=== PATIENT | male | born 1965 | race Caucasian/White ===

== ENCOUNTER 2019-02-21 17:52 | Emergency (ER) | payer SELFPAY ==
[2019-02-21 18:21] VITALS: TEMP 98.4; BMI 29.2
--- NOTE | 2019-02-21 19:15 | PDOC ---
History of Present Illness - General Chief Complaint: Weakness Stated Complaint: WEAKNESS Time Seen by Provider: 02/21/19 18:30 History Source: Patient Exam Limitations: Language Barrier - History of Present Illness Initial Comments: 02/23/19 07:32 HPI: 53M PMH NIIDM (noncompliant w/ meds) c/o 2 days generalized weakness and frontal /occipital headache in setting of 2 weeks of increased urinary frequency, dysuria, and nonradiating on/off mid-epigastric and flank pain. Denies acute onset changes in vision/hearing, numbness, tingling, f/c/, cp/sob, n/v. Etoh: 12 pack of beer per week, smokes when drinking. Abd surg - hernia repair. Sexually active w/ 1 partner. No PCP Past History - Past Medical History Allergies/Adverse Reactions: Allergies Allergy/AdvReac Type Severity Reaction Status Date / Time No Known Allergies Allergy Verified 02/21/19 18:19 Home Medications: Ambulatory Orders Lisinopril [Prinivil] 5 mg PO DAILY 02/21/19 Metformin HCl [Glucophage] 1,000 mg PO BID 02/21/19 Omeprazole 20 mg PO DAILY 02/21/19 Simvastatin 40 mg PO DAILY 02/21/19 COPD: No Dementia: Yes (TYPE 2) HTN: Yes Hypercholesterolemia: Yes - Surgical History Abdominal Surgery: Yes (HERNIA REPAIR) - Psycho Social/Smoking Cessation Hx Smoking History: Current some day smoker Have you smoked in the past 12 months: Yes Number of Cigarettes Smoked Daily: 2 Information on smoking cessation initiated: No Hx Alcohol Use: No Drug/Substance Use Hx: No Review of Systems - Review of Systems Able to Perform ROS?: Yes Comments:: 02/23/19 07:32 ROS: CONSTITUTIONAL: Denies F / C HEENT: Endorses headache. Denies acute change in vision/hearing. Endorses chronic occasionally blurry vision (told by PCP to get glasses), . RESP: Endorses chronic productive cough (2 years, unchanged). Denies SOB CARD: Denies chest pain, palpitations GI: Endorses midepigastric and flank pain, and loss of appetite. : Endorses frequency and dysuria NEURO: Endoses generalized weakness. Denies acute onset numbness, tingling. Endorses chronic tingling in the AMs (2 years). Is the patient limited Angolan proficient: Yes *Physical Exam - Vital Signs Last Vital Signs Temp Pulse Resp BP Pulse Ox 98.4 F 84 18 146/99 96 02/21/19 18:19 02/21/19 18:19 02/21/19 18:19 02/21/19 18:19 02/21/19 18:19 - Physical Exam Comments: 02/23/19 07:32 PE: GEN: NAD, slightly diaphoretic HEENT: NC/AT, PERRLA. No facial asymmetry. Moist mucous membranes. Normal voice. Supple neck w/ FROM. CV: S1/S2, RRR, no m/r/g LUNG: CTAB, no wheezes, crackles, rales, rhonchi. GI: +MILD TTP midepigastrium otherwise soft, ndnt, +BS, no guarding, no rebound. Neg CVAT b/l. EXTREMITIES: No LE edema. No obvious deformities of all extremities. SKIN: warm, dry, normal turgor PSYCH: normal mood and affect NEURO: Moving all extremities well ED Treatment Course - LABORATORY CBC & Chemistry Diagram: 02/21/19 19:10 02/21/19 19:10 - ADDITIONAL ORDERS Additional order review: Laboratory Results 02/21/19 18:41 POC Glucometer 110 02/21/19 18:41 POC Glucometer 110 Medical Decision Making - Medical Decision Making 02/21/19 19:09 MDM: 53M w/ generalized weakness, headache, midepigastric pain, and urinary freq/ dysuria. Concern for DKA will look at fingerstick glucose DDx DKA, pancreatitis, PUD, UTI - CBC, CMP, CARDIAC - UA/UC - EKG - Tylenol, Fluids, Reglan - reassess - will set up with resident clinic labs reviewed UA neg pt reassessed, abd pain improved but headache still present Toradol, reassess Signed out to PM team Discharge - Discharge Information Problems reviewed: Yes Clinical Impression/Diagnosis: Abdominal pain Qualifiers: Abdominal location: epigastric Qualified Code(s): R10.13 - Epigastric pain Condition: Stable Disposition: HOME - Follow up/Referral Referrals: [facility] [Provider Group] - Patient Discharge Instructions Patient Printed Discharge Instructions: DI for Abdominal Pain-Adult, DI for Headache Additional Instructions: YOU WERE SEEN AND TREATED IN THE EMERGENCY DEPARTMENT YOU MAY TAKE TYLENOL FOR PAIN DIRECTED PER BOTTLE. FOLLOW UP WITH YOUR PRIMARY CARE DOCTOR IN THE NEXT 3-4 DAYS REGARDING YOUR CONCERNS AND THIS ED VISIT. WE HAVE REFERRED YOU TO THE [facility]. THE PHONE NUMBER IS PROVIDED. CALL AND SCHEDULE AN APPOINTMENT. IMMEDIATELY RETURN TO THE ED IF YOU EXPERIENCE ANY OF THE FOLLOWING: - WORSENING AND/OR UNRESOLVING HEADACHE - WORSENING ABDOMINAL PAIN - CHEST PAIN, SHORTNESS OF BREATH - ANYTHING THAT CONCERNS YOU - Post Discharge Activity
[2019-02-21 19:16] LABS: EPI CELLS 0.2 /HPF (0-5/HPF); HYALINE CASTS 1 /lpf (0-8); URINE APPEARANCE CLEAR; URINE BACTERIA 1.4 /hpf (NEGATIVE); URINE BILIRUBIN NEGATIVE (NEGATIVE); URINE COLOR YELLOW; URINE GLUCOSE (UA) NEGATIVE (NEGATIVE); URINE KETONE 1+ (NEGATIVE); URINE LEUK ESTERASE NEGATIVE (NEGATIVE); URINE NITRITE NEGATIVE (NEGATIVE); URINE PROTEIN 1+ (NEGATIVE); URINE RBC 0 /hpf (0-4); URINE UROBILINOGEN 0.2 mg/dL (0.2-1.0); URINE WBC 0 /hpf (0-5)
[2019-02-21] MEDS ORDERED: SODIUM CHLORIDE 0.9% 500 ML INFUS.BAG IV ONE (19:16)
[2019-02-21] MEDS ORDERED: ACETAMINOPHEN 1000 MG/100 ML VIAL (NON FORMULARY) IVPB ONE (19:17)
[2019-02-21] MEDS ORDERED: METOCLOPRAMIDE HCL INJECTION 10 MG/2 ML VIAL IVPUSH ONE (19:18)
[2019-02-21 19:30] LABS: BASO % 0.3 % (0-2.0); EOS % 0.7 % (0-4.5); HEMOGLOBIN 14.9 GM/dL (11.7-16.9); LYMPH % 40.8 % (8-40); MCH 30.9 pg (25.7-33.7); MCHC 33.8 g/dl (32.0-35.9); MEAN CELL VOLUME 91.4 fl (80-96); MEAN PLT VOLUME 9.4 fl (7.5-11.1); NEUT % 50.2 % (42.8-82.8); PLATELET COUNT 226 K/MM3 (134-434); RBC 4.82 M/mm3 (4.00-5.60); RDW 13.4 % (11.9-15.9)
[2019-02-21] MEDS ORDERED: METOCLOPRAMIDE HCL INJECTION 10 MG/2 ML VIAL ONE (19:49)
[2019-02-21] MEDS ORDERED: ACETAMINOPHEN INJECTION 100 ML IVPB ONE (19:50)
--- NOTE | 2019-02-21 19:54 | PDOC ---
Documentation entered by Zeb Mcknight SCRIBE, acting as scribe for Muna Khalil DO. Muna Khalil DO: This documentation has been prepared by the Juan Luis sanchez Daniel, SCRIBE, under my direction and personally reviewed by me in its entirety. I confirm that the documentation accurately reflects all work, treatment, procedures, and medical decision making performed by me. Attending Attestation - Resident Resident Name: KenWill - ED Attending Attestation I have performed the following: I have examined & evaluated the patient, The case was reviewed & discussed with the resident, I agree w/resident's findings & plan, Exceptions are as noted - HPI HPI: 02/21/19 19:16 The patient is a 53 year old male with a past medical history of diabetes (non compliant with meds) here today for evaluation of generalized weakness and epigastric pain. The patient reports that he has had a few weeks of mid epigastric pain, urinary frequency, and dysuria. He reports coming in today due to a new onset of generalized weakness and headache. Patient denies lightheadedness. Denies fever, chills. Denies chest pain, shortness of breath. Denies nausea, vomiting, diarrhea. Allergies: NKA Social history: 12 pack of beer a week Surgical history: hernia repair - Physicial Exam PE: 02/21/19 19:37 Constitutional: Awake, alert, oriented. No acute distress. Head: Normocephalic. Atraumatic Eyes: PERRL. EOMI. Conjunctivae are not pale. ENT: Mucous membranes are moist and intact. Posterior pharynx without exudates or erythema. Uvula midline. Neck: Supple. Full ROM. No lymphadenopathy. Cardiovascular: Regular rate. Regular rhythm. S1, S2 regular. Distal pulses are 2+ and symmetric. Pulmonary/Chest: No evidence of respiratory distress. Clear to auscultation bilaterally No wheezing, rales or rhonchi. Abdominal: +epigastric and lower abdominal discomfort. Soft and non-distended. No rebound, guarding or rigidity. No organomegaly. No palpable masses. Good bowel sounds. Back: No CVA tenderness. Musculoskeletal: No edema. No cyanosis. No clubbing. Full range of motion in all extremities. No calf tenderness. Radial/pedal pulses are intact and 2+ bilaterally Skin: Skin is warm and dry. No petechiae. No purpura. Neurological: Alert and oriented to person, place, and time. Cranial nerves II -XII are grossly intact. Normal speech. Strength is grossly symmetric. No sensory deficits. Psychiatric: Good eye contact. Normal interaction, affect and behavior. - Medical Decision Making 02/21/19 19:52 I, Dr. Muna Khalil, DO, attest that this document has been prepared under my direction and personally reviewed by me in its entirety. I further attest, that it accurately reflects all work, treatment, procedures and medical decision -making performed by me. a/p: 53yo male with dysuria and lower abd pain x 2 weeks -gomes today -neuro intact -no neck pain -no n/v/d -no hematuria -no cva ttp -mid upper abd pain -will send labs, ekg, trop, gi meds, ua, ucx -will monitor and reassess 02/21/19 21:09 labs with mild dehydration receiving ivf will also give po challenge prior to dc 02/21/19 23:21 pt feels better stable for dc to home pt has tolerated po intake in the ED Heart Score/ECG Review - ECG Intrepretation Comment:: 02/21/19 19:53 sinus at 74, nl axis, nl interval, t wave inversions III which are nonspecific
[2019-02-21 20:06] LABS: ALBUMIN 3.5 g/dl (3.4-5.0); ALK PHOS 99 U/L (45-117); ANION GAP 8 MMOL/L (8-16); BILIRUBIN,TOTAL 0.4 mg/dL (0.2-1); BLOOD UREA NITROGEN 19.1 mg/dL (7-18); CALCIUM 8.6 mg/dL (8.5-10.1); CHLORIDE 106 mmol/L (98-107); CO2 25 mmol/L (21-32); CREATININE 0.7 mg/dL (0.55-1.3); GLUCOSE,RANDOM 96 mg/dL (74-106); POTASSIUM 3.7 mmol/L (3.5-5.1); SGOT/AST 19 U/L (15-37); SGPT/ALT 20 U/L (13-61); SODIUM 139 mmol/L (136-145); TOT PROT 7.4 g/dl (6.4-8.2)
[2019-02-21] MEDS ORDERED: MAG HYDROX/AL HYDROX/SIMETH 30 ML UNIT-DOSE CUP PO ONE (20:41)
[2019-02-21] MEDS ORDERED: LIDOCAINE VISCOUS 2% ORAL/TOP 20 ML UNIT-DOSE CUP MM ONE (20:42)
[2019-02-21 20:44] LABS: LIPASE 144 U/L (73-393)
[2019-02-21] MEDS ORDERED: LIDOCAINE VISCOUS 2% ORAL/TOP 20 ML UNIT-DOSE CUP ONE (20:53)
[2019-02-21] MEDS ORDERED: MAG HYDROX/AL HYDROX/SIMETH 30 ML UNIT-DOSE CUP ONE (20:54)
[2019-02-21] MEDS ORDERED: KETOROLAC TROMETHAMINE 30 MG/1 ML VIAL IVPUSH ONE (22:14)
--- NOTE | 2019-02-21 22:21 | PDOC ---
*Physical Exam - Vital Signs Last Vital Signs Temp Pulse Resp BP Pulse Ox 98.4 F 84 18 146/99 96 02/21/19 18:19 02/21/19 18:19 02/21/19 18:19 02/21/19 18:19 02/21/19 18:19 ED Treatment Course - LABORATORY CBC & Chemistry Diagram: 02/21/19 19:10 02/21/19 19:10 - ADDITIONAL ORDERS Additional order review: Laboratory Results 02/21/19 02/21/19 02/21/19 19:10 18:45 18:41 Sodium 139 Potassium 3.7 Chloride 106 Carbon Dioxide 25 Anion Gap 8 BUN 19.1 H Creatinine 0.7 Est GFR (CKD-EPI)AfAm 123.13 Est GFR (CKD-EPI)NonAf 106.24 POC Glucometer 110 Random Glucose 96 Calcium 8.6 Total Bilirubin 0.4 AST 19 ALT 20 Alkaline Phosphatase 99 Total Protein 7.4 Albumin 3.5 Lipase 144 Urine Color Yellow Urine Appearance Clear Urine pH 5.0 Ur Specific [place] 1.024 Urine Protein 1+ H Urine Glucose (UA) Negative Urine Ketones 1+ H Urine Blood Negative Urine Nitrite Negative Urine Bilirubin Negative Urine Urobilinogen 0.2 Ur Leukocyte Esterase Negative Urine WBC (Auto) 0 Urine RBC (Auto) 0 Urine Casts (Auto) 1 U Epithel Cells (Auto) 0.2 Urine Bacteria (Auto) 1.4 02/21/19 02/21/19 19:10 18:41 RBC 4.82 MCV 91.4 MCHC 33.8 RDW 13.4 MPV 9.4 Neutrophils % 50.2 Lymphocytes % 40.8 H Monocytes % 8.0 Eosinophils % 0.7 Basophils % 0.3 POC Glucometer 110 - Medications Given in the ED: ED Medications Discontinued Medications Generic Name Dose Route Start Last Admin Trade Name Freq PRN Reason Stop Dose Admin Acetaminophen 1,000 mg 02/21/19 19:17 02/21/19 19:50 Ofirmev Injection - IVPB 02/21/19 19:18 1,000 mg ONCE ONE Administration Al Hydroxide/Mg Hydroxide 30 ml 02/21/19 20:41 02/21/19 20:54 Mylanta Oral Suspension - PO 02/21/19 20:42 30 ml ONCE ONE Administration Lidocaine HCl 20 ml 02/21/19 20:42 02/21/19 20:54 Xylocaine 2% Viscous Oral - MM 02/21/19 20:43 20 ml ONCE ONE Administration Metoclopramide HCl 10 mg 02/21/19 19:18 02/21/19 19:50 Reglan Injection - IVPUSH 02/21/19 19:19 10 mg ONCE ONE Administration Sodium Chloride 1,000 ml 02/21/19 19:16 02/21/19 19:50 Normal Saline - IV 02/21/19 19:17 1,000 ml ONCE ONE Administration Medical Decision Making - Medical Decision Making 02/21/19 22:18 53y/o NIDDM non compliant with meds presenting with epigastric pain, urinary frequency, dysuria. CC: headache and weakness neurologically intact Workup recieved tylenol, reglan, viscous lidocaine UA negative will receive toradol Reasses after toradol. 02/21/19 23:23 Pt reassesed after toradol, is feeling well enough to go home. Discharge - Discharge Information Problems reviewed: Yes Clinical Impression/Diagnosis: Abdominal pain Qualifiers: Abdominal location: epigastric Qualified Code(s): R10.13 - Epigastric pain Condition: Stable Disposition: HOME - Admission No - Follow up/Referral Referrals: [facility] [Provider Group] - Patient Discharge Instructions Patient Printed Discharge Instructions: DI for Abdominal Pain-Adult, DI for Headache Additional Instructions: YOU WERE SEEN AND TREATED IN THE EMERGENCY DEPARTMENT YOU MAY TAKE TYLENOL FOR PAIN DIRECTED PER BOTTLE. FOLLOW UP WITH YOUR PRIMARY CARE DOCTOR IN THE NEXT 3-4 DAYS REGARDING YOUR CONCERNS AND THIS ED VISIT. WE HAVE REFERRED YOU TO THE [facility]. THE PHONE NUMBER IS PROVIDED. CALL AND SCHEDULE AN APPOINTMENT. IMMEDIATELY RETURN TO THE ED IF YOU EXPERIENCE ANY OF THE FOLLOWING: - WORSENING AND/OR UNRESOLVING HEADACHE - WORSENING ABDOMINAL PAIN - CHEST PAIN, SHORTNESS OF BREATH - ANYTHING THAT CONCERNS YOU - Post Discharge Activity
[2019-02-21] MEDS ORDERED: KETOROLAC TROMETHAMINE 30 MG/1 ML VIAL ONE (22:37)
[2019-02-22] VITALS: BP 140/88; PULSE 80
--- NOTE | 2019-02-22 13:35 | EKG ---
Test Reason : Blood Pressure : / mmHG Vent. Rate : 074 BPM Atrial Rate : 074 BPM P-R Int : 154 ms QRS Dur : 084 ms QT Int : 360 ms P-R-T Axes : 021 027 016 degrees QTc Int : 399 ms NORMAL SINUS RHYTHM NONSPECIFIC T WAVE ABNORMALITY ABNORMAL ECG WHEN COMPARED WITH ECG OF 16-JUL-2009 11:06, NONSPECIFIC T WAVE ABNORMALITY NOW EVIDENT IN ANTEROLATERAL LEADS Confirmed by SAVANNA GOLDSTEIN, MARTHA ([id number]) on 02/22/2019 1:34:28 PM Referred By: Confirmed By:MARTHA CORRALES MD
== END 2019-02-22 00:01 | disposition home or self-care (01) ==
LOC: JER 17:52
PROC: 3E033NZ Introduction of Analgesics, Hypnotics, Sedatives into Peripheral Vein, Percutaneous Approach (ICD-10-PCS; principal; 2019-02-21)
PROC: 3E033GC Introduction of Other Therapeutic Substance into Peripheral Vein, Percutaneous Approach (ICD-10-PCS; 2019-02-21)
PROC: 3E0333Z Introduction of Anti-inflammatory into Peripheral Vein, Percutaneous Approach (ICD-10-PCS; 2019-02-21)
DX: R10.13 Epigastric pain (principal); I10 Essential (primary) hypertension; E78.00 Pure hypercholesterolemia, unspecified; E11.9 Type 2 diabetes mellitus without complications; Z79.84 Long term (current) use of oral hypoglycemic drugs
CPT/HCPCS: 36415; 80053; 81003; 82550; 82553; 82962; 83690; 84484; 85025; 87086; 93005; 93010; 99284-25; J0131